=== PATIENT | female | born 1955 | race Caucasian/White ===

== ENCOUNTER 2016-11-04 18:17 | Emergency (ER) | payer OTHER ==
[2016-11-04 18:32] VITALS: RESP 20; TEMP 98.2
[2016-11-04 19:01] LABS: COLOR YELLOW; LEUKOCYTE ESTERASE,URINE NEGATIVE (NEGATIVE); NITRITE,URINE NEGATIVE (NEGATIVE)
[2016-11-04] MEDS ORDERED: NS 1,000 ML IV ONE (19:07)
[2016-11-04] MEDS ORDERED: KETOROLAC 15 MG/1 ML SDV IVP ONE (19:08)
[2016-11-04 19:25] LABS: % IMMATURE GRANULYOCYTES 0.3 % (0.0-1.1); ABSOLUTE IMMATURE GRANULOCYTES 0.03 10^3/uL (0.00-0.10); ADD DIFF? NO; ADD MORPH? NO; ADD SCAN? NO; ATYPICAL LYMPHOCYTE FLAG 0 (0-99); FRAGMENT RBC FLAG 0 (0-99); HEMOGLOBIN 13.9 g/dL (12.6-16.3); LEFT SHIFT FLG 0 (0-99); LIPEMIA HEMOLYSIS FLAG 90 (0-99); MEAN CELL HEMOGLOBIN 30.3 pg (27.9-34.1); MEAN CELL HEMOGLOBIN CONCENTR. 33.9 g/dL (32.4-36.7); MEAN CELL VOLUME 89.5 fL (81.5-99.8); MEAN PLATELET VOLUME 10.4 fL (8.7-11.7); PLATELET CLUMPS FLAG 10 (0-99); PLATELET COUNT 228 10^3/uL (150-400); RED BLOOD CELL COUNT 4.58 10^6/uL (4.18-5.33); RED CELL DISTRIBUTION WIDTH 13.1 % (11.5-15.2)
[2016-11-04 19:39] LABS: ALANINE AMINOTRANSFERASE 28 IU/L (9-52); ALBUMIN 4.1 g/dL (3.5-5.0); ALKALINE PHOSPHATASE 78 IU/L (38-126); ANION GAP 16 mEq/L (8-16); ASPARTATE AMINOTRANSFERASE 26 IU/L (14-46); BILIRUBIN,TOTAL 0.8 mg/dL (0.1-1.4); BILIRUBIN-CONJUGATED 0.3 mg/dL (0.0-0.5); BILIRUBIN-UNCONJUGATED 0.5 mg/dL (0.0-1.1); CALCIUM 9.5 mg/dL (8.5-10.4); CARBON DIOXIDE 23 mEq/l (22-31); CHLORIDE 100 mEq/L (97-110); CREATININE 0.7 mg/dL (0.6-1.0); GLOMERULAR FILTRATION RATE > 60; GLUCOSE 87 mg/dL (70-100); POTASSIUM 3.9 mEq/L (3.5-5.2); SODIUM 139 mEq/L (134-144); TOTAL PROTEIN 7.8 g/dL (6.3-8.2)
[2016-11-04] MEDS ORDERED: AMOXICILLIN/CLAVULANATE POT 875/125 MG TAB PO ONE (20:31)
[2016-11-04] MEDS ORDERED: HYOSCYAMINE SULFATE 0.125 MG TAB PO ONE (20:32)
--- NOTE | 2016-11-04 20:37 | UCPHY ---
H & P Patient Type: New Chief Complaint Nursing Narrative: lower abdominal pain since this morning Time Seen by Provider: 11/04/16 18:58 HPI/ROS: This patient was a prior history of diverticulitis describes onset of left lower quadrant pain that awakened her at 5:15 a.m. this morning and is reminiscent of prior episode of diverticulitis. She describes peak intensity is 8/10, slightly colicky in nature, currently 3/10. She has not taken any medications for it. She has some nausea but no vomiting associated with this. No other associated symptoms. The symptoms do worsen with certain positions- extending while standing up another movements. It feels better when she slightly flexes her back forward or lies down on her side. ROS: No fevers. No significant fatigue. No other constitutional symptoms. HEENT: No cold symptoms recently. Pulmonary: No cough cardiovascular: No significant lightheadedness. GI: She reports normal bowel movements typically 2 a day with no significant change in the caliber color of her stool. No symptoms. 10 point ROS is otherwise negative. Source: Patient Exam Limitations: No limitations - Medical/Surgical History PMH: Ureteral dysfunction with ureteral surgery on the right side and a TURP procedure in the left side Past surgical history of lap band procedure 9 years ago. 1 previous episode of diverticulitis several years ago. Other PMH: bilateral ureter defects, lap band 8 years ago, diverticulosis in May. 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 Eyes: Pupils equal and round no pallor or injection. ENT, Mouth: Mucous membranes moist. Respiratory: There are no retractions, lungs are clear to auscultation. Cardiovascular: Regular rate and rhythm. Gastrointestinal: Normoactive, soft, moderate left lower quadrant more than suprapubic tenderness with no guarding or rebound. Back: No CVA tenderness Neurological: Alert with no focal deficits Skin: Warm and dry, no rashes. Musculoskeletal: Neck is supple nontender. Extremities are symmetrical, full range of motion. Psychiatric: Mood and affect normal DIFFERENTIAL DIAGNOSIS: After history and physical exam differential diagnosis was considered for early diverticulitis, mild constipation, UTI, ureteral stone Constitutional: Initial Vital Signs Temperature (C) 36.8 C 11/04/16 18:24 Heart Rate 85 11/04/16 18:24 Respiratory Rate 20 11/04/16 18:24 Blood Pressure 144/82 H 11/04/16 18:24 O2 Sat (%) 98 11/04/16 18:24 O2 Delivery Mode Room Air Allergies/Adverse Reactions: Sulfa (Sulfonamide Antibiotics) Allergy (Verified 11/04/16 19:30) Home Medications: Medication Instructions Recorded Amoxicillin/Clavulanate Pot 875 mg PO BID #20 tab 11/04/16 [Augmentin 875 MG TAB (*)] Medical Decision Making ED Course/Re-evaluation: IV normal saline bolus Toradol with some relief of her discomfort Review of her labs reveals mild left shift on her CBC otherwise normal labs. I suspect that she does have early diverticulitis & I counseled regarding this. Will hold on imaging as I do not suspect she has an abscess or other complicating factors at this time She is treated with Augmentin 875 p.o. - Data Points Laboratory Results: Laboratory Results 11/04/16 19:18 11/04/16 19:18 11/04/16 11/04/16 11/04/16 19:18 19:18 17:55 WBC 9.28 10^3/uL 10^3/uL (3.80-9.50) RBC 4.58 10^6/uL 10^6/uL (4.18-5.33) Hgb 13.9 g/dL g/dL (12.6-16.3) Hct 41.0 % % (38.0-47.0) MCV 89.5 fL fL (81.5-99.8) MCH 30.3 pg pg (27.9-34.1) MCHC 33.9 g/dL g/dL (32.4-36.7) RDW 13.1 % % (11.5-15.2) Plt Count 228 10^3/uL 10^3/uL (150-400) MPV 10.4 fL fL (8.7-11.7) Neut % (Auto) 73.9 % % (39.3-74.2) Lymph % (Auto) 18.0 % % (15.0-45.0) [place] % (Auto) 6.7 % % (4.5-13.0) Eos % (Auto) 0.6 % % (0.6-7.6) Baso % (Auto) 0.5 % % (0.3-1.7) Nucleat RBC Rel Count 0.0 % % (0.0-0.2) Absolute Neuts (auto) 6.85 10^3/uL H 10^3/uL (1.70-6.50) Absolute Lymphs (auto) 1.67 10^3/uL 10^3/uL (1.00-3.00) Absolute Monos (auto) 0.62 10^3/uL 10^3/uL (0.30-0.80) Absolute Eos (auto) 0.06 10^3/uL 10^3/uL (0.03-0.40) Absolute Basos (auto) 0.05 10^3/uL 10^3/uL (0.02-0.10) Absolute Nucleated RBC 0.00 10^3/uL 10^3/uL (0-0.01) Immature Gran % 0.3 % % (0.0-1.1) Immature Gran # 0.03 10^3/uL 10^3/uL (0.00-0.10) Sodium 139 mEq/L mEq/L (134-144) Potassium 3.9 mEq/L mEq/L (3.5-5.2) Chloride 100 mEq/L mEq/L (97-110) Carbon Dioxide 23 mEq/l mEq/l (22-31) Anion Gap 16 mEq/L mEq/L (8-16) BUN 20 mg/dL mg/dL (7-23) Creatinine 0.7 mg/dL mg/dL (0.6-1.0) Estimated GFR > 60 Glucose 87 mg/dL mg/dL (70-100) Calcium 9.5 mg/dL mg/dL (8.5-10.4) Total Bilirubin 0.8 mg/dL mg/dL (0.1-1.4) Conjugated Bilirubin 0.3 mg/dL mg/dL (0.0-0.5) Unconjugated Bilirubin 0.5 mg/dL mg/dL (0.0-1.1) AST 26 IU/L IU/L (14-46) ALT 28 IU/L IU/L (9-52) Alkaline Phosphatase 78 IU/L IU/L (38-126) Total Protein 7.8 g/dL g/dL (6.3-8.2) Albumin 4.1 g/dL g/dL (3.5-5.0) Urine Color YELLOW Urine Appearance CLEAR Urine pH 5.0 (5.0-7.5) Ur Specific [place] >= 1.030 (1.002-1.030) Urine Protein NEGATIVE (NEGATIVE) Urine Ketones 2+ H (NEGATIVE) Urine Blood NEGATIVE (NEGATIVE) Urine Nitrate NEGATIVE (NEGATIVE) Urine Bilirubin NEGATIVE (NEGATIVE) Urine Urobilinogen 0.2 EU EU (0.2-1.0) Ur Leukocyte Esterase NEGATIVE (NEGATIVE) Ur Culture Indicated? NOT INDICATED (NI) Urine Glucose NEGATIVE (NEGATIVE) Medications Given: Discontinued Medications Amoxicillin/Clavulanate Potassium (Augmentin 875mg) 875 mg PO EDNOW ONE PRN Reason: Protocol Stop: 11/04/16 20:32 Last Admin: 11/04/16 20:59 Dose: 875 mg Hyoscyamine Sulfate (Levsin, Hyomax-Sl) 0.125 mg PO EDNOW ONE Stop: 11/04/16 20:33 Last Admin: 11/04/16 20:59 Dose: 0.125 mg Sodium Chloride (Ns) 1,000 mls @ 0 mls/hr IV ONCE ONE PRN Reason: Wide Open Stop: 11/04/16 19:08 Last Admin: 11/04/16 19:30 Dose: 1,000 mls Ketorolac Tromethamine (Toradol) 15 mg IVP EDNOW ONE Stop: 11/04/16 19:09 Last Admin: 11/04/16 19:32 Dose: 15 mg Departure - Departure Disposition: Home, Routine, Self-Care Clinical Impression: Diverticulitis Qualifiers: Diverticulitis site: unspecified part of intestinal tract Diverticulitis bleeding: without bleeding Diverticulitis complication: without perforation or abscess Qualified Code(s): K57.92 - Diverticulitis of intestine, part unspecified, without perforation or abscess without bleeding Condition: Good Instructions: Diverticulitis (ED) Additional Instructions: Diagnosis: Diverticulitis Plan: Ibuprofen and Tylenol for pain as needed Augmentin antibiotic Follow up with primary care physician for any ongoing symptoms despite the treatment plan. Return for any significant worsening despite the treatment plan Referrals: NONE *PRIMARY CARE P,. [Primary Care Provider] - As per Instructions Lillie Canchola MD [Medical Doctor] - As per Instructions Stand Alone Forms: Work Excuse Prescriptions: Amoxicillin/Clavulanate Pot [Augmentin 875 MG TAB (*)] 875 mg PO BID #20 tab - PQRS PQRS Measurement: NA
[2016-11-04 21:06] VITALS: BP 135/87; PULSE 74; O2SAT 97
== END 2016-11-04 21:01 | disposition home or self-care (01) ==
LOC: CED 18:17
DX: K57.92 Diverticulitis of intestine, part unspecified, without perforation or abscess without bleeding (principal)
CPT/HCPCS: 80048-PO; 80076-PO; 81003-PO; 85025-PO; 96360-PO; 96361-PO; 96374-PO; G0463-PO; J1885